=== PATIENT | female | born 1940 | race Caucasian/White ===

== ENCOUNTER → 2020-09-28 09:58 | Outpatient (BNVA) | payer MEDICARE, SELFPAY | PROVIDERS: Visit Provider Hospitalist | DX: J43.2 Centrilobular emphysema (principal); J84.10 Pulmonary fibrosis, unspecified; R06.00 Dyspnea, unspecified; B94.8 Sequelae of other specified infectious and parasitic diseases | CPT/HCPCS: 99202 ==

== ENCOUNTER → 2020-10-25 13:01 | Outpatient (BNVA) | payer MEDICARE, SELFPAY | PROVIDERS: PCP Internal Medicine; Visit Provider Hospitalist | DX: J43.2 Centrilobular emphysema (principal); J84.10 Pulmonary fibrosis, unspecified; R06.00 Dyspnea, unspecified; B94.8 Sequelae of other specified infectious and parasitic diseases | CPT/HCPCS: 99212 ==

== ENCOUNTER 2020-10-25 14:14 | Emergency (ER) | payer MEDICARE, SELFPAY ==
--- NOTE | 2020-10-25 | ECG_ITS ---
Test Reason : CHEST HEAVINESS Blood Pressure : / mmHG Vent. Rate : 079 BPM Atrial Rate : 079 BPM P-R Int : 232 ms QRS Dur : 074 ms QT Int : 378 ms P-R-T Axes : 049 -05 027 degrees QTc Int : 433 ms Sinus rhythm with 1st degree A-V block Cannot rule out Inferior infarct , age undetermined Abnormal ECG When compared with ECG of 20-MAR-2019 13:44, No significant change was found Referred By: Generic ED Physician Electronically Signed By:DANIEL MENON
--- NOTE | ~2020-10-25 | XR_ITS ---
EXAMINATION: XR CHEST CLINICAL INFORMATION: Chest pain. COMPARISON: Chest pain TECHNIQUE: Frontal view of the chest was obtained. FINDINGS: The lungs are well-expanded with patchy opacity seen in the right upper lobe likely atelectasis or infiltrate. Minimal atelectasis or scarring is seen in both lung bases. Heart size and vascularity is normal. The trachea is deviated to the right There are surgical jose alfredo overlying the left mid chest. No gross bony abnormality seen. XR/XR chest 1V IMPRESSION: Patchy opacity right upper lobe likely atelectasis/ infiltrate . There is bibasilar atelectasis vs scarring.
--- NOTE | ~2020-10-25 | CT_ITS ---
EXAMINATION: CT ANGIOGRAM OF THE CHEST WITH AND WITHOUT CONTRAST (CT PULMONARY ANGIOGRAM FOR PE) CLINICAL INFORMATION: Evaluate for pulmonary embolism. COMPARISON: Chest radiograph done earlier the same day and CT chest dated 03/20/2019. TECHNIQUE: Prior to contrast administration, noncontrast localization images were obtained. Subsequently, multidetector volumetric imaging was performed from the thoracic inlet to below the diaphragms following the administration of 71 mL Omnipaque 350 intravenous contrast. No contrast reaction reported. Sagittal, coronal, and MIP oblique sagittal reformatted images were obtained on the CT workstation, uploaded to PACS, and reviewed. This CT examination was performed using dose optimization techniques as appropriate, variously including the following: *Automated exposure control *Adjustment of mA and/or kV according to patient size (this includes techniques or standardized protocols for targeted exams where dose is matched to indication/reason for exam; i.e. extremities or head) *Use of iterative reconstruction technique Total exam dose-length product 395 mGy-cm. FINDINGS: QUALITY OF STUDY/CONTRAST BOLUS: Satisfactory. PULMONARY ARTERIES: No central or segmental pulmonary emboli. THORACIC AORTA: No aneurysm or dissection. LUNG: Emphysematous changes are redemonstrated, most prominent within the upper lobes. Diffuse interstitial prominence has increased when compared to the prior examination. Bilateral dependent atelectasis. Stable probable subpleural lymph node along the left major fissure (axial image [id number]/439). No new large pulmonary nodule or mass. No large, confluent airspace consolidation. PLEURA: No pleural effusion or pneumothorax. MEDIASTINUM: Normal heart size. No pericardial effusion. No hilar or mediastinal lymphadenopathy. No evidence of septal bowing or right heart strain. CHEST WALL/AXILLA: No axillary or internal mammary lymphadenopathy. OSSEOUS STRUCTURES: No acute or suspicious osseous abnormality. UPPER ABDOMEN: Unremarkable. No reflux of contrast into the hepatic veins to suggest elevated right heart pressures. CT/CT angio chest IMPRESSION: 1. No CT angiographic evidence of acute pulmonary embolism. 2. Emphysematous changes are redemonstrated. Interstitial prominence and bilateral dependent atelectasis, increased when compared to the prior examination. 3. No new pulmonary nodule, mass, or airspace consolidation. VTE: Negative.
[2020-10-25 14:44] VITALS: BP 125/54; PULSE 92; RESP 20; TEMP 36.8; O2SAT 97; BMI 32.3
[2020-10-25 15:20] VITALS: BP 136/64; PULSE 81; RESP 20; TEMP 36.9; O2SAT 99; BMI 33.3
--- NOTE | 2020-10-25 15:30 | ED.CHESTPAIN ---
HPI - Chest Pain General Chief Complaint: Dizziness Stated Complaint: abnormal ekg Time Seen by Provider: 10/25/20 15:26 History of Present Illness HPI narrative: 80 yo female sent here by Pulmunologist office because weakness/chest pain started just p[rior arrival.She hs hx of pulmonary fibrosis complaint: chest pain Onset (ago): hour(s) (1) Prior episodes: No Onset: during rest Pain location: substernal Pain radiation: none Severity: mild Quality: aching Risk Factors Coronary artery disease risk factors: smoking history Related Data Home Medications Medication Instructions Recorded Confirmed albuterol sulfate 90 mcg/actuation 2 puff PO Q6H PRN 09/28/20 aerosol inhaler anastrozole 1 mg tablet 1 mg PO DAILY 09/28/20 atorvastatin 20 mg tablet 20 mg PO DAILY 09/28/20 diclofenac sodium 1 % topical gel g TOPICAL QID PRN 09/28/20 escitalopram oxalate 10 mg tablet 10 mg PO BEDTIME 09/28/20 esomeprazole magnesium 40 mg 40 mg PO DAILY 09/28/20 capsule,delayed release fluticasone propionate 50 1 spray INTRANASAL BID 09/28/20 mcg/actuation nasal spray,suspension lisinopril 30 mg tablet 30 mg PO DAILY 09/28/20 budesonide 160 mcg-glycopyr 9 2 inh PO BID 10/25/20 mcg-formot 4.8 mcg/actuation HFA inhaler (Breztri Aerosphere) Previous Rx's Medication Instructions Recorded prednisone 10 mg tablet 10 mg PO DAILY 28 Days #42 tab 09/28/20 furosemide 20 mg tablet (Lasix) 20 mg PO DAILY 14 Days #14 tab 10/25/20 Allergies Allergy/AdvReac Type Severity Reaction Status Date / Time codeine [CODEINE] Allergy Mild VOMITING Verified 10/25/20 14:44 Review of Systems Review of Systems: Yes all other systems are reviewed and are negative Constitutional: Constitutional: Reports no additional constitutional complaints Eyes: Eyes: Reports no additional eye complaints Cardiovascular: Cardiovascular: Denies syncope, Denies rapid heart rate and Denies pedal edema Respiratory: Respiratory: Denies no additional respiratory complaints Neurologic: Denies syncope [facility] Past Medical History Attestation statement: The following information was validated with the patient. 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 Pulmonary fibrosis TIA (transient ischemic attack) Social History Social History Alcohol intake: current Alcohol intake frequency: a few times a month Alcohol type: wine Patient Tobacco Use Status: Former Tobacco user Years Smoked: 30 years Smoked in Last 30 Days: No Use of substances other than those prescribed or required for medical reasons: No Advance Directives: No Advance Directives Information Provided: No Physical Exam Vital Signs: Vital Signs: Last Vital Signs Temp 98.5 F 10/25/20 15:20 Pulse 81 10/25/20 15:20 Resp 20 10/25/20 15:20 BP 136/64 10/25/20 15:20 Pulse Ox 99 10/25/20 15:20 Body Mass Index 33.3 Const: General: cooperative and anxious HENMT: Head: Yes normal to inspection and Yes No palpable skull fracture present Ears: hearing grossly normal bilaterally Mouth: Normal oral and palatal mucosa present Neck: Neck: Yes normal visual inspection, Yes full ROM, Yes no lymphadenopathy and Yes no meningeal signs Thyroid: Thyroid normal Chest: Chest palpation & inspection: normal inspection of the chest Resp: Effort & Inspection: normal respiratory effort Auscultation: clear to auscultation bilaterally Cardio: Jugular venous distension: no JVD Rate: regular rate Rhythm: regular rhythm GI: Inspection: Yes normal to inspection Palpation (GI): Soft to palpation, not firm, nontender and no guarding Skin: General skin exam: no rashes or lesions noted and elasticity normal Rashes: no rashes Neuro: General: no meningeal signs Course Reevaluation(s) Reevaluation #1: sHE IS FEELING BETTER TROPI DELTA NEGATIVE;CTA CHEST NO PE,AT THIS TIME WILL D/C PT HOME MDM - Chest Pain Lab Data Result diagrams: 10/25/20 15:51 10/25/20 15:52 Labs: Lab Results 10/25/20 10/25/20 10/25/20 Range/Units 15:51 15:51 15:51 WBC 8.7 (4.8-10.8) X10*3/uL RBC 3.96 L (4.20-5.50) X10*6/uL Hgb 12.4 (12.0-16.0) g/dl Hct 38.1 (37-47) % MCV 96.2 (80-98) fL MCH 31.3 (27.0-33.0) pg MCHC 32.5 (31.0-35.0) g/dl RDW 13.8 (11.0-16.0) % Plt Count 256 (160-400) X10*3/uL MPV 8.6 L (9.4-12.3) fL Immature Gran % (Auto) 0.5 H (0.0-0.4) % Neut % (Auto) 69.0 (45-73) % Lymph % (Auto) 18.6 L (20-40) % [place] % (Auto) 9.4 (2-11) % Eos % (Auto) 1.8 (0-4) % Baso % (Auto) 0.7 (0-2) % Lymph # (Auto) 1.6 (1.2-4.9) X10*3/uL [place] # (Auto) 0.8 (0.1-1.2) X10*3/uL Eos # (Auto) 0.2 (0.0-0.4) X10*3/uL Baso # (Auto) 0.1 (0.0-0.2) X10*3/uL Abs Immat Gran (auto) 0.04 H (0.00-0.03) X10*3/uL Absolute Neuts (auto) 6.0 (2.0-8.3) X10*3/uL Absolute Nucleated RBC 0.000 (0.0-0.012) X10*3/uL Nucleated RBC % (auto) 0.0 (0.0-0.2) /100WBC PT 11.0 (9.9-13.0) SEC INR 1.0 (0.9-1.1) D-Dimer 346 NG/ML Sodium (135-145) mmol/L Potassium (3.3-5.1) mmol/L Chloride (96-108) mmol/L Carbon Dioxide (22-29) mmol/L Anion Gap (12-20) BUN (9-16) mg/dL Creatinine (0.5-1.4) mg/dL Estim Creat Clear Calc Estimated GFR Random Glucose (60-115) mg/dL Calcium (8.4-10.2) mg/dL Total Bilirubin (0.0-1.0) mg/dL AST (5-31) U/L ALT (0-31) U/L Alkaline Phosphatase (39-117) U/L Troponin I High Sens < 3.5 (<3.5-17.0) ng/L Total Protein (6.5-8.0) g/dL Albumin (3.5-5.0) g/dL COVID-19 (ANICETO) (Negative) COVID-19 Clin Com 10/25/20 10/25/20 10/25/20 Range/Units 15:52 19:08 19:24 WBC (4.8-10.8) X10*3/uL RBC (4.20-5.50) X10*6/uL Hgb (12.0-16.0) g/dl Hct (37-47) % MCV (80-98) fL MCH (27.0-33.0) pg MCHC (31.0-35.0) g/dl RDW (11.0-16.0) % Plt Count (160-400) X10*3/uL MPV (9.4-12.3) fL Immature Gran % (Auto) (0.0-0.4) % Neut % (Auto) (45-73) % Lymph % (Auto) (20-40) % [place] % (Auto) (2-11) % Eos % (Auto) (0-4) % Baso % (Auto) (0-2) % Lymph # (Auto) (1.2-4.9) X10*3/uL [place] # (Auto) (0.1-1.2) X10*3/uL Eos # (Auto) (0.0-0.4) X10*3/uL Baso # (Auto) (0.0-0.2) X10*3/uL Abs Immat Gran (auto) (0.00-0.03) X10*3/uL Absolute Neuts (auto) (2.0-8.3) X10*3/uL Absolute Nucleated RBC (0.0-0.012) X10*3/uL Nucleated RBC % (auto) (0.0-0.2) /100WBC PT (9.9-13.0) SEC INR (0.9-1.1) D-Dimer NG/ML Sodium 135 (135-145) mmol/L Potassium 4.2 (3.3-5.1) mmol/L Chloride 101 (96-108) mmol/L Carbon Dioxide 24 (22-29) mmol/L Anion Gap 14 (12-20) BUN 19 H (9-16) mg/dL Creatinine 1.11 (0.5-1.4) mg/dL Estim Creat Clear Calc 46.6 Estimated GFR 47 Random Glucose 108 (60-115) mg/dL Calcium 9.1 (8.4-10.2) mg/dL Total Bilirubin 0.5 (0.0-1.0) mg/dL AST 15 (5-31) U/L ALT 24 (0-31) U/L Alkaline Phosphatase 56 (39-117) U/L Troponin I High Sens < 3.5 (<3.5-17.0) ng/L Total Protein 5.9 L (6.5-8.0) g/dL Albumin 3.7 (3.5-5.0) g/dL COVID-19 (ANICETO) Negative (Negative) COVID-19 Clin Com See Note Imaging Data CT scan - chest: Radiologist's impression: Stable probable subpleural lymph node along the left major fissure (axial image 216/439). No new large pulmonary nodule or mass. No large, confluent airspace consolidation. PLEURA: No pleural effusion or pneumothorax. MEDIASTINUM: Normal heart size. No pericardial effusion. No hilar or mediastinal lymphadenopathy. No evidence of septal bowing or right heart strain. CHEST WALL/AXILLA: No axillary or internal mammary lymphadenopathy. OSSEOUS STRUCTURES: No acute or suspicious osseous abnormality.? UPPER ABDOMEN: Unremarkable. No reflux of contrast into the hepatic veins to suggest elevated right heart pressures. CT/CT angio chest IMPRESSION: 1. No CT angiographic evidence of acute pulmonary embolism. ? 2. Emphysematous changes are redemonstrated. Interstitial prominence and bilateral dependent atelectasis, increased when compared to the prior examination. ? 3. No new pulmonary nodule, mass, or airspace consolidation. ? VTE: Negative. ECG Data ECG #1: Pacemaker model: #1 EKG done at [facility] NSR 74 no ischemic changes ECG #2: Pacemaker model: NSR [address] changes Discharge Plan Discharge Clinical Impression: Chest pain Patient Disposition: Home, Self-Care Instructions: Chest Pain (ED) Prescriptions: No Action Teenatri Aerosphere 160-9-4.8 mcg/actuation HFA aerosol inhaler 2 inh PO BID RF: 0 furosemide [Lasix] 20 mg tablet 20 mg PO DAILY 14 Days Qty: 14 RF: 0 escitalopram oxalate 10 mg tablet 10 mg PO BEDTIME RF: 0 atorvastatin 20 mg tablet 20 mg PO DAILY RF: 0 lisinopril 30 mg tablet 30 mg PO DAILY RF: 0 esomeprazole magnesium 40 mg capsule,delayed release(DR/EC) 40 mg PO DAILY RF: 0 diclofenac sodium 1 % gel topical QID PRN (Reason: pain) RF: 0 anastrozole 1 mg tablet 1 mg PO DAILY RF: 0 fluticasone propionate 50 mcg/actuation spray,suspension 1 spray intranasal BID RF: 0 albuterol sulfate 90 mcg/actuation HFA aerosol inhaler 2 puff PO Q6H PRN (Reason: wheezing) RF: 0 prednisone 10 mg tablet 10 mg PO DAILY 28 Days Qty: 42 RF: 0 Referrals: Saleem Kennedy MD [Primary Care Provider] - 2 days
[2020-10-25 15:56] LABS: MANUAL DIFF FLAG NO
[2020-10-25 15:58] LABS: Basophils Absolute Auto 0.1 X10*3/uL (0.0-0.2); Basophils Percent Auto 0.7 % (0-2); Eosinophils Absolute Auto 0.2 X10*3/uL (0.0-0.4); Eosinophils Percent Auto 1.8 % (0-4); Hematocrit 38.1 % (37-47); Hemoglobin 12.4 g/dl (12.0-16.0); Imm Gran Abs Auto 0.04 X10*3/uL (0.00-0.03); Imm Gran Pct Auto 0.5 % (0.0-0.4); Lymphocytes Absolute Auto 1.6 X10*3/uL (1.2-4.9); Lymphocytes Percent Auto 18.6 % (20-40); Mean Corpuscular HGB Conc 32.5 g/dl (31.0-35.0); Mean Corpuscular Hemoglobin 31.3 pg (27.0-33.0); Mean Corpuscular Volume 96.2 fL (80-98); Mean Platelet Volume 8.6 fL (9.4-12.3); Monocytes Absolute Auto 0.8 X10*3/uL (0.1-1.2); Monocytes Percent Auto 9.4 % (2-11); Platelet Count 256 X10*3/uL (160-400); Red Blood Count 3.96 X10*6/uL (4.20-5.50); Red Cell Distribution Width 13.8 % (11.0-16.0); White Blood Count 8.7 X10*3/uL (4.8-10.8)
[2020-10-25] MEDS: 0.9 % Sodium Chloride 1,000 ML 999 ML IVCONT (16:00)
[2020-10-25 16:07] LABS: D Dimer 346 NG/ML
[2020-10-25 16:25] LABS: Alanine Aminotransferase 24 U/L (0-31); Albumin Level 3.7 g/dL (3.5-5.0); Alkaline Phosphatase 56 U/L (39-117); Anion Gap 14 (12-20); Aspartate Amino Transferase 15 U/L (5-31); Bilirubin Total 0.5 mg/dL (0.0-1.0); Blood Urea Nitrogen 19 mg/dL (9-16); Calcium 9.1 mg/dL (8.4-10.2); Carbon Dioxide 24 mmol/L (22-29); Chloride 101 mmol/L (96-108); Creatinine Clr Calc Pharmacy 46.6; Estimated Glomerular Filt Rate 47; Glucose Random 108 mg/dL (60-115); Potassium 4.2 mmol/L (3.3-5.1); Sodium 135 mmol/L (135-145); Total Protein 5.9 g/dL (6.5-8.0)
[2020-10-25 16:29] LABS: Troponin-I High Sensitivity < 3.5 ng/L (<3.5-17.0)
--- NOTE | 2020-10-25 19:32 | PC.NURSE ---
pt refused covid/flu/rsv swab. new order placed for covid 19 swab.
[2020-10-25 19:39] LABS: Troponin-I High Sensitivity < 3.5 ng/L (<3.5-17.0)
[2020-10-25] MEDS: iohexoL 350 MG/ML 100 ML INFUS..BTL IV (19:45)
[2020-10-25 19:47] LABS: COVID-19 Test Negative (Negative); IDNOW Serial# 08D9AD1C
== END 2020-10-25 20:48 | disposition home or self-care (01) ==
PROVIDERS: Emergency Provider Emergency Medicine; PCP Internal Medicine
DX: R07.9 Chest pain, unspecified (principal); R53.1 Weakness; Z20.822 Contact with and (suspected) exposure to COVID-19; J84.10 Pulmonary fibrosis, unspecified; I10 Essential (primary) hypertension; Z79.02 Long term (current) use of antithrombotics/antiplatelets; Z79.899 Other long term (current) drug therapy; Z86.73 Personal history of transient ischemic attack (TIA), and cerebral infarction without residual deficits; Z87.891 Personal history of nicotine dependence
CPT/HCPCS: 36415; 71045; 71275; 80053; 84484; 85025; 85379; 85610; 87635; 93005; 96360; 99284; Q9967

== ENCOUNTER 2020-11-21 13:10 | Outpatient (REF) | payer MEDICARE, MEDICAID, SELFPAY ==
[2020-11-21 14:16] VITALS: O2SAT 95
[2020-11-21 14:43] LABS: ABG Refer to POC result
[2020-11-21 14:44] LABS: ABG Base Excess -0.3 mmol/L; ABG HCO3 22 mmol/L (22-26); ABG pCO2 31 mmHg (32-45); ABG pH 7.46 (7.35-7.45); ABG pO2 94 mmHg (83-108)
== END 2020-11-21 13:11 | disposition home or self-care (01) ==
LOC: HO.LAB 13:10
PROVIDERS: PCP Internal Medicine; Visit Provider Hospitalist
DX: R06.00 Dyspnea, unspecified (principal); B94.8 Sequelae of other specified infectious and parasitic diseases; J43.2 Centrilobular emphysema; J84.10 Pulmonary fibrosis, unspecified; E87.3 Alkalosis
CPT/HCPCS: 36600; 82803; 99212

== ENCOUNTER → 2020-12-05 13:16 | Outpatient (BNVA) | payer MEDICARE, MEDICAID, SELFPAY | PROVIDERS: PCP Internal Medicine; Visit Provider Hospitalist | DX: J43.2 Centrilobular emphysema (principal); R06.00 Dyspnea, unspecified; B94.8 Sequelae of other specified infectious and parasitic diseases; J84.10 Pulmonary fibrosis, unspecified; E87.3 Alkalosis | CPT/HCPCS: 99212 ==

== ENCOUNTER → 2021-01-10 11:05 | Outpatient (BNVA) | payer MEDICARE, MEDICAID, SELFPAY | PROVIDERS: PCP Internal Medicine; Visit Provider Hospitalist | DX: J43.2 Centrilobular emphysema (principal); J84.10 Pulmonary fibrosis, unspecified; R06.00 Dyspnea, unspecified; B94.8 Sequelae of other specified infectious and parasitic diseases; E87.3 Alkalosis | CPT/HCPCS: 99212 ==

== ENCOUNTER → 2021-10-16 13:14 | Outpatient (BNVA) | payer MEDICARE, MEDICAID, SELFPAY | PROVIDERS: PCP Internal Medicine; Visit Provider Hospitalist | DX: J43.2 Centrilobular emphysema (principal); J84.10 Pulmonary fibrosis, unspecified; B94.8 Sequelae of other specified infectious and parasitic diseases; E87.3 Alkalosis; Z86.16 Personal history of COVID-19; Z87.891 Personal history of nicotine dependence | CPT/HCPCS: 94618; 99212 ==

== ENCOUNTER → 2021-11-03 14:18 | Outpatient (BNVA) | payer MEDICARE, MEDICAID, SELFPAY | PROVIDERS: PCP Internal Medicine; Visit Provider Hospitalist | DX: J43.2 Centrilobular emphysema (principal); J84.10 Pulmonary fibrosis, unspecified; U09.9 Post COVID-19 condition, unspecified; R06.00 Dyspnea, unspecified; E87.3 Alkalosis; K21.9 Gastro-esophageal reflux disease without esophagitis; Z99.81 Dependence on supplemental oxygen; Z79.899 Other long term (current) drug therapy | CPT/HCPCS: 99212 ==